=== PATIENT | male | born 1975 | race Caucasian/White ===

== ENCOUNTER 2022-10-20 13:58 | Emergency (ER) | payer OTHER ==
[2022-10-20] MEDS ORDERED: Sodium Chloride 0.9% 2.5 ML Syringe FLUSH PRN (15:04)
[2022-10-20] MEDS ORDERED: Sodium Chloride 0.9% 10 ML Syringe FLUSH PRN (15:04)
[2022-10-20 16:07] LABS: CARBON DIOXIDE,CO2 28.6 mmol/L (21.0-32.0); POTASSIUM,K 4.2 mmol/L (3.5-5.1)
== END 2022-10-20 16:40 | disposition home or self-care (01) ==
LOC: MW.ED 13:58
DX: K62.5 Hemorrhage of anus and rectum (principal); Z72.0 Tobacco use
CPT/HCPCS: 36415; 80053; 82607; 82728; 83735; 85025; 99283; J3490